=== PATIENT | female | born 1955 | race Caucasian/White ===

== ENCOUNTER 2017-12-26 12:24 | Outpatient (CLI) | payer BC | END 2017-12-26 12:25 | disposition home or self-care (01) | LOC: BICMAMMO 12:24 | PROVIDERS: ATTEND Obstetrics & Gynecology | DX: Z12.31 Encounter for screening mammogram for malignant neoplasm of breast (principal); Z80.3 Family history of malignant neoplasm of breast | CPT/HCPCS: 77063; 77067 ==

== ENCOUNTER 2017-12-31 04:17 | Inpatient (IN) | payer BC ==
[2017-12-31] MEDS ORDERED: Ondansetron PF 4 MG/2 ML Vial ONE ×2 (04:30→06:53)
[2017-12-31 05:15] LABS: Hemoglobin 17.2 g/dL (12.0-16.0); Mean Corpuscular HGB CONC 32.2 g/dL (32.0-36.0); Mean Corpuscular Volume 93.2 fL (78.0-98.0); Mean Platelet Volume 7.7 fL (7.4-10.4); Platelet Count 368 thou/uL (130-400); RBC Distribution Width 11.9 % (11.5-14.5); Red Blood Cell (RBC) Count 5.72 mill/uL (4.20-5.40); White Blood Cell (WBC) Count 19.8 thou/uL (4.8-10.8)
[2017-12-31 05:20] LABS: ALT (SGPT) 26 U/L (8-55); AST (SGOT) 29 U/L (5-34); Albumin 5.4 g/dL (3.4-4.8); Alkaline Phosphatase 92 U/L (40-150); Anion Gap 21 mmol/L (10-20); BUN (Urea Nitrogen) 24 mg/dL (9.8-20.1); Bilirubin, Total 0.6 mg/dL (0.2-1.2); Calc. Creatinine Clearance 0 mL/min (70-130); Calcium 11.9 mg/dL (7.8-10.44); Carbon Dioxide 30 mmol/L (23-31); Chloride 96 mmol/L (98-107); Estimated GFR-MDRD 44; Globulin 3.7 g/dL (2.4-3.5); Glucose 148 mg/dL (80-115); Lipase 10 U/L (8-78); Potassium 4.8 mmol/L (3.5-5.1); Protein, Total 9.1 g/dL (6.0-8.3); Sodium 142 mmol/L (136-145)
[2017-12-31 05:23] LABS: Troponin I Less than 0.010 ng/mL (< 0.028)
[2017-12-31 05:43] LABS: Band 8 % (5-11); Eosinophils 4 % (0-10); Lymphocytes 6 % (21-51); MDiff Complete? YES; Monocytes 6 % (0-10); Neutrophil 76 % (42-75)
[2017-12-31] MEDS ORDERED: Morphine 2 MG/ML SYRINGE SLOW IVP PRN (09:40)
[2017-12-31] MEDS ORDERED: Ondansetron ODT 4 MG TAB SL PRN (09:41)
[2017-12-31] MEDS ORDERED: Ondansetron PF 4 MG/2 ML Vial IVP PRN (09:41)
[2017-12-31] MEDS ORDERED: Acetaminophen 500 MG TAB PO PRN (10:29)
[2017-12-31] MEDS ORDERED: Ondansetron ODT 4 MG TAB PO PRN (10:29)
[2017-12-31] MEDS: Ondansetron PF 4 MG/2 ML Vial IVP PRN (10:40)
--- NOTE | 2017-12-31 11:17 | CT ---
PRELIMINARY REPORT/[facility]/EMERGENCY AFTER HOURS PROCEDURE: EXAM: CT Abdomen and Pelvis With Intravenous Contrast EXAM DATE/TIME: 12/31/2017 5:37 AM CLINICAL HISTORY: 62 years old, female; Signs and symptoms; Nausea and vomiting; Patient HX: F62 presents to ed C/O vom iting, onset earlier today. PT competed in tennis tournament today and felt nausea after, followed by vomiting and chills. Vomit has been mostly clear. PT has HX of bowel obstruction from past surgery, feb 2016. PT also has HX of peripheral neuropathy. PT experienced hyperventhilating ear lier today. Denies: Diarhea, fever, chest pain, SOB, dysuria. TECHNIQUE: Axial computed tomography images of the abdomen and pelvis with intravenous contrast. Coronal reforma tted images were created and reviewed. COMPARISON: No relevant prior studies available. FINDINGS: Lower thorax: No acute findings. ABDOMEN: Liver: There is a 6.4 x 6.0 cm cyst in the left lobe of the liver. There are several smaller addition al liver cysts. Gallbladder and bile ducts: Normal. No calcified stones. No ductal dilation. Pancreas: Normal. No ductal dilation. Spleen: Normal. No splenomegaly. Adrenals: Normal. No mass. Kidneys and ureters: There is a 2.4 cm cyst in the right kidney. The left kidney is unremarkable. Stomach and bowel: The proximal small bowel is dilated measuring up to 4.2 cm in diameter. There is a transition point in mid abdomen (series 2 image 50 and series 601 image 35). Appendix: The appendix is unremarkable. PELVIS: Bladder: Unremarkable as visualized. Reproductive: The uterus is not identified. ABDOMEN and PELVIS: Intraperitoneal space: Unremarkable. No free fluid or free air. No fluid collection. Bones/joints: No fracture. No dislocation. Soft tissues: There is rectus diastasis. Vasculature: Calcifications in the stanton of the aorta and other arteries are consistent with atherosc lerosis. No abdominal aortic aneurysm or dissection is identified. Lymph nodes: Normal. No enlarged lymph nodes. IMPRESSION: 1. Small bowel obstruction. 2. Large amount of stool in the colon. 3. Additional findings as above. Thank you for allowing us to participate in the care of your patient. Dictated and Authenticated by: Gabriel Shabazz MD 12/31/2017 6:34 AM Central Time ([place] & [place]) FINAL REPORT CT ABDOMEN AND PELVIS WITH CONTRAST: Date: 12/31/17 HISTORY: Abdominal pain, nausea, and vomiting. COMPARISON: None. FINDINGS/IMPRESSION: Pleural based nodule in the right lower lobe measuring 7.0 mm. Multiple hepatic cysts. Findings and impression are concordant with the preliminary report by Diandra. Surgical consultation advised. Transition point seen on axial image 50, in the midline lower abdomen. POS: ALVIN
--- NOTE | 2017-12-31 11:19 | HP ---
DATE OF ADMISSION: 12/31/2017 PRIMARY CARE PHYSICIAN: Dr. Ghislaine Avilez at [facility]. CHIEF COMPLAINT: Nausea, vomiting, and abdominal pain. HISTORY OF PRESENT ILLNESS: This is a 62-year-old female who presents to [facility] Emergency Department complaining of approximately less than 24-hour history of abdominal pain with associated nausea and vomiting that has been persistent. The patient states she completed a tennis tournament in [facility] on 12/30/2017 noticing some abdominal discomfort after completion of her m atch. The patient states she had a bowel movement after arriving back home with increasing nausea an d eventual emesis over the course of the evening. The patient states her last oral intake was in the brand manager hours on 12/31/2017. The patient denies any recent trauma injury, but does state a hi story of bowel obstruction manually reduced approximately a year and a half prior to this evaluation without further complications. The patient states she remains very active and denies any recent cerna ge to her medication regimen, travel history or diarrhea. The patient denies any other alleviating f actors. In the emergency room, the patient underwent general evaluation including CT of the abdomen and pelvis showing evidence of small-bowel obstruction with transition point. The patient was given Zofran and intravenous normal saline and transferred to the surgical unit for further evaluation. PAST MEDICAL HISTORY: 1. Peripheral neuropathy. 2. History of partial small bowel obstruction in 2017. 3. Seasonal allergies. PAST SURGICAL HISTORY: 1. Status post bladder suspension. 2. Status post reduction of a partial small-bowel obstruction. 3. Status post hysterectomy. CURRENT MEDICATIONS: 1. Zyrtec 10 mg p.o. daily. 2. Cranberry extract 425 mg p.o. daily. 3. Estrace 1 mg p.o. daily. 4. Estradiol 1 mg p.o. Monday, Monday, and Monday. 5. Folic acid 0.4 mg p.o. daily. 6. Gabapentin 300 mg p.o. b.i.d. and 600 mg p.o. at bedtime. 7. Multivitamin 1 tab p.o. daily. 8. Pamelor 10 mg p.o. p.r.n. 9. Nasacort 2 sprays in each naris daily. ALLERGIES: To SULFA. FAMILY HISTORY: No inheritable diseases per the patient report. SOCIAL HISTORY: The patient is , resides in [facility]. No current tobacco, alcohol o r illicit drug use. Functional of all activities of daily living. REVIEW OF SYSTEMS: The following complete review of systems was negative, unless otherwise mentioned in the HPI or below: Constitutional: Weight loss or gain, ability to conduct usual activities. Skin: Rash, itching. Eyes: Double vision, pain. ENT/Mouth: Nose bleeding, neck stiffness, pain, tenderness. Cardiovascular: Palpitations, dyspnea on exertion, orthopnea. Respiratory: Shortness of breath, wheezing, cough, hemoptysis, fever or night sweats. Gastrointestinal: Poor appetite, abdominal pain, heartburn, nausea, vomiting, constipation, or diarr hea. Genitourinary: Urgency, frequency, dysuria, nocturia. Musculoskeletal: Pain, swelling. Neurologic/Psychiatric: Anxiety, depression. Allergy/Immunologic: Skin rash, bleeding tendency. PHYSICAL EXAMINATION: VITAL SIGNS: On admission, blood pressure 112/84, pulse 88, respiratory rate 18, temperature 98 degr ees Fahrenheit, O2 saturation is 99% on room air. GENERAL APPEARANCE: This is a 62-year-old female, alert and oriented x3, pleasant, convers ant, smiling, in no acute distress. HEENT: Pupils are equal, round, and reactive to light and accommodation. Extraocular muscles are in tact. No scleral icterus, no conjunctival injection. Nares patent. OP is clear. Teeth in good rep air. NECK: Supple, no cervical adenopathy, no thyromegaly, no carotid bruits, no JVD appreciated. Cervic al spine with full active and passive range of motion. No meningeal signs appreciated. CHEST: Lungs are clear to auscultation bilaterally. CARDIOVASCULAR: S1, S2, without noted murmur, rub or gallop. ABDOMEN: Flat, soft, nontender, nondistended. Bowel sounds are positive in all four quadrants. The re is no hepatosplenomegaly, no abdominal bruits, no rebound or guarding appreciated. EXTREMITIES: Warm and dry with fair turgor. No clubbing, cyanosis or asymmetric edema appreciated. Pulses palpable distally at the dorsalis pedis, posterior tibial, and popliteal arteries bilaterally . Capillary refill less than 2 seconds. NEUROLOGIC: Cranial nerves II through XII are grossly intact. No focal or lateralizing signs apprec iated. PERTINENT LABORATORY DATA AND X-RAY FINDINGS: Sodium 142, potassium 4.8, chloride 96, CO2 of 30, BUN 24, creatinine 1.23 with estimated GFR of 44, glucose 148, calcium 11.9. LFTs within normal limits. Lipase 10. CBC showed white blood cell count 19.8, hemoglobin 17, hematocrit 53, platelet count 36 8 with 76% neutrophils. CT of the abdomen and pelvis dated 12/31/2017 showed evidence of a partial s mall-bowel obstruction with transition point. EKG dated 12/31/2017 by my interpretation shows sinus mechanism with heart rates in the 70s. Normal R-wave progression noted in precordial leads. Normal axis. No acute ST-T wave changes appreciated. ASSESSMENT AND PLAN: 1. Partial small-bowel obstruction. The patient will be admitted to the surgical llanes. We will con tinue symptomatic and supportive management. No current need for NG tube placement. Small bowel fol low through planned currently. Continue IV fluids with normal saline and antiemetics as clinically i ndicated. General Surgery consult pending. 2. Nausea and vomiting secondary to #1, improved. We will continue Zofran 4 mg IV q.6 hours p.r.n. Continue intravenous normal saline. 3. Acute kidney injury. Suspect secondarily to volume depletion and #1. 4. Avoid nephrotoxic agents and contrast media. Continue intravenous fluids and repeat creatinine i n the a.m. 5. Hypercalcemia, mild. Suspect secondary to acute kidney injury. Repeat calcium level and continu e IV fluids. 6. Prophylaxis. Sequential compression devices while in bed. Pepcid 20 mg IV q.12 hours. 7. Code status is full. Surrogate medical decision maker is patient's spouse.
[2017-12-31] MEDS: Gabapentin 300 MG CAP PO SCH ×2 (11:57→20:21)
[2017-12-31] MEDS: Sodium Chloride 0.9% 1,000 ML IV SCH ×2 (11:57→22:27)
--- NOTE | 2017-12-31 14:44 | RAD ---
SMALL BOWEL FOLLOW THROUGH: Date: 12/31/17 HISTORY: Obstruction. COMPARISON: CT same date. FINDINGS: There is no significant change in the contrast transit between 1 hour and 2.5 hours. This is at the l evel of the known transition point in the lower abdomen. IMPRESSION: High grade small bowel obstruction. POS: ALVIN
[2017-12-31 14:52] VITALS: BMI 21.7
[2017-12-31] MEDS ORDERED: Ondansetron PF 4 MG/2 ML Vial IVP SCH (15:00)
[2017-12-31] MEDS ORDERED: Iopamidol-M 200 41% 10 ML VIAL FS ONE (16:52)
[2017-12-31] MEDS ORDERED: Promethazine HCl 12.5 MG in Sodium Chloride 0.9% 50 ML IVPB SCH (17:15)
--- NOTE | 2017-12-31 18:41 | RAD ---
ABDOMEN ONE VIEW: History: Follow up possible small bowel obstruction. Comparison: Small bowel study, 12-31-17 FINDINGS: This KUB is approximately 7 hours following the start of the small bowel study. Contrast media is in persistently dilated small bowel, mostly jejunal loops. It does not appear to have progressed into th e ileum and certainly not into the colon at this time. This certainly is concerning for potential hig h grade obstruction or possibly a very atonic bowel. IMPRESSION: Dilute oral contrast within dilated proximal small bowel, but no evidence of contrast extension into the ileum or more distal small bowel or colon, even after approximately 7 hours from the time of the start of the prior small bowel study. POS: BJORN
--- NOTE | 2017-12-31 19:22 | CON-2 ---
DATE OF CONSULTATION: 12/31/2017 REQUESTING PHYSICIAN: Dr. Sosa. HISTORY OF PRESENT ILLNESS: Leidy Torres is a 62-year-old female who presented to [facility] cy Room overnight with a chief complaint of abdominal pain, nausea, and vomiting. Per patient, she h ad recently completed a tennis tournament and had sudden onset of abdominal cramping and pain associa jadiel with nausea and vomiting. The patient was seen and evaluated in the emergency room and admitted to the hospital. Surgical team was consulted after CT scan showed dilated loops of small bowel with question of possible transition point; however, there was no oral contrast given. Upon our evaluatio n, the patient states her abdominal pain has improved, she is to 2/10. She is currently undergoing a small bowel follow through and she did have some vomiting after drinking the contrast for this. She reports that she continues to have a pass gas and her last bowel movement was on the day prior to ad mission. ALLERGIES: SULFA. HOME MEDICATIONS: Zyrtec 10 mg p.o. daily; cranberry supplementation; Estrace 1 mg daily; estradiol 1 mg Monday, Monday, Monday; folic acid 0.4 mg; gabapentin 300 mg b.i.d. and 600 mg at bedtime; mu ltivitamin; Pamelor 10 mg p.r.n.; Nasacort 2 sprays daily. PAST MEDICAL HISTORY: Significant for peripheral neuropathy, seasonal allergies and history of a par tial small bowel obstruction in 2017. PAST SURGICAL HISTORY: Significant for a laparoscopic hysterectomy, robotic bladder suspension and e xploratory laparotomy for adhesions, adhesions causing bowel obstruction. Additionally, she has had 2 arthroscopic left knee surgeries. 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 She denies alcohol, tobacco or illicit drug use. FAMILY HISTORY: Patient denies any family history of any chronic medical illnesses. REVIEW OF SYSTEMS: Rest of a 10-point review of systems was performed and negative except as indicat ed in the HPI. PHYSICAL EXAMINATION: VITAL SIGNS: On evaluation, blood pressure 112/77, pulse 80, respirations 16, O2 sat 96% on room air , temperature 97.8. GENERAL: Well-developed female in no acute distress, resting in bed. HEAD: Normocephalic, atraumatic. EYES: Pupils were PERRL. Extraocular movements are intact. NECK: Supple. Trachea is midline. PULMONARY: Normal work of breathing, symmetric rise. LUNGS: Clear to auscultation bilaterally. CARDIOVASCULAR: Regular rate and rhythm, no obvious murmurs, rubs or gallops. GASTROINTESTINAL: Flat, midline surgical scar is noted. Bowel sounds are positive, nontender, nondi stended. No evidence of guarding, rigidity or rebound tenderness. MUSCULOSKELETAL: Moves all extremities x4. NEUROLOGIC: No focal deficit is noted. LABORATORY DATA: WBC 19.8, hemoglobin 17.2, hematocrit 53.3, platelet count 368. Sodium 142, potass ium 4.8, chloride 96, carbon dioxide 30, BUN 24, creatinine 1.23, glucose 148, calcium 11.9. AST and ALT within normal limits. RADIOGRAPHIC FINDINGS: CT of the abdomen and pelvis was read as multiple liver cysts with the larges t measuring 6.4 x 6.0 cm in the left lobe, right kidney cyst, dilated proximal small bowel with evide nce of a possible transition point in the mid abdomen, large amount of stool in the colon, pleural no dule in the right lower lobe measuring 7.0 mm. ASSESSMENT: 1. Abdominal pain associated with nausea and vomiting. 2. History of multiple abdominal surgeries. 3. Acute kidney injury. 4. Hypercalcemia. 5. Leukocytosis. 6. Possible small-bowel obstruction. PLAN: Follow up results of small bowel follow through. The NG tube had not been placed as patient's nausea and vomiting had resolved prior to the small bowel follow through and it being initiated. Fu rther plans to be delineated once the results of the study have been obtained. Plan of care was disc ussed with the patient at bedside and all questions were answered at the time of this dictation. The patient was seen and evaluated with Dr. Hutchinson.
[2017-12-31] MEDS: Famotidine/PF 20 mg/2ml Vial SLOW IVP SCH (20:17)
--- NOTE | 2017-12-31 22:10 | RAD ---
ABDOMEN ONE VIEW: History: NG tube placement. Comparison: 12-31-17 FINDINGS: An NG tube has been placed extending into the stomach. There is some residual dilute contrast media w ithin the stomach and minimally dilated jejunum and proximal small bowel. IMPRESSION: NG tube in satisfactory location within the stomach. POS: BJORN
[2017-12-31] MEDS ORDERED: diphenhydrAMINE 50 MG/ML VIAL IVP SCH (22:15)
[2018-01-01] MEDS ORDERED: Morphine 2 MG/ML SYRINGE SLOW IVP SCH (04:30)
[2018-01-01 05:45] LABS: Hemoglobin 14.1 g/dL (12.0-16.0); Lymphocytes 19 % (21-51); MDiff Complete? YES; Mean Corpuscular HGB CONC 31.4 g/dL (32.0-36.0); Mean Corpuscular Hemoglobin 29.7 pg (27.0-31.0); Mean Corpuscular Volume 94.5 fL (78.0-98.0); Mean Platelet Volume 7.7 fL (7.4-10.4); Monocytes 11 % (0-10); Neutrophil 70 % (42-75); Platelet Count 314 thou/uL (130-400); RBC Distribution Width 11.9 % (11.5-14.5); Red Blood Cell (RBC) Count 4.75 mill/uL (4.20-5.40); White Blood Cell (WBC) Count 11.6 thou/uL (4.8-10.8)
[2018-01-01 06:29] LABS: Anion Gap 15 mmol/L (10-20); BUN (Urea Nitrogen) 35 mg/dL (9.8-20.1); Calc. Creatinine Clearance 56 mL/min (70-130); Calcium 9.3 mg/dL (7.8-10.44); Carbon Dioxide 31 mmol/L (23-31); Chloride 104 mmol/L (98-107); Estimated GFR-MDRD 51; Glucose 104 mg/dL (80-115); Sodium 146 mmol/L (136-145)
[2018-01-01] MEDS: Famotidine/PF 20 mg/2ml Vial SLOW IVP SCH (08:40)
[2018-01-01] MEDS: Sodium Chloride 0.9% 1,000 ML IV SCH ×2 (08:40→20:01)
[2018-01-01] MEDS ORDERED: Acetaminophen 1,000 MG in Premix Bag 1 BAG IVPB PRN (08:43)
[2018-01-01] MEDS: Estradiol 1 MG TAB PO SCH (08:49)
[2018-01-01] MEDS: Loratadine 10 MG TAB PO SCH (08:50)
[2018-01-01] MEDS: Folic Acid 1 MG TAB PO SCH (08:50)
[2018-01-01] MEDS ORDERED: Estradiol 1 MG TAB PO SCH (09:00)
[2018-01-01] MEDS: Ondansetron PF 4 MG/2 ML Vial IVP PRN ×2 (10:10→11:50)
[2018-01-01] MEDS ORDERED: Ondansetron PF 4 MG/2 ML Vial SLOW IVP PRN ×2 (11:51→12:39)
[2018-01-01] MEDS ORDERED: Ondansetron ODT 4 MG TAB PO PRN (11:51)
[2018-01-01] MEDS: Gabapentin 300 MG CAP PO SCH ×2 (11:52→20:01)
[2018-01-01] MEDS ORDERED: MD-Gastroview 120 ML BOT ONE (12:38)
[2018-01-01] MEDS ORDERED: Ondansetron ODT 8 MG TAB PO PRN (12:39)
--- NOTE | 2018-01-01 13:07 | RAD ---
SMALL BOWEL SERIES: Date: 01/01/18 HISTORY: 62-year-old female with history of small bowel obstruction. COMPARISON: 12/31/17. FINDINGS: Gastrografin was introduced through a NG tube. There are dilated jejunal and proximal small bowel loo ps with a transition to nondilated small bowel in the mid and distal small bowel. Contrast media prog resses throughout the entire small bowel and into the right colon by 30 minutes. IMPRESSION: Evidence for partial small bowel obstruction with dilated duodenum and proximal jejunum, with contras t media progressing into nondilated mid and distal small bowel and colon by 30 minutes. POS: BJORN
--- NOTE | 2018-01-01 13:15 | PRG ---
DATE OF SERVICE: 01/01/2018 Ms. Torres is doing well today. She had 3.1 liters out her NG tube overnight. On admission, she had an oral small bowel follow through precipitating abundant nausea and vomiting a nd contrast did not progress to the colon and NG tube placed after that resulting in 3.1 liters decom pression. This morning she states she feels much better. She has passed flatus, although not had a bowel movement. Her abdomen is not distended. PHYSICAL EXAMINATION: LUNGS: Clear to auscultation. CARDIAC: Regular rate and rhythm without murmur or gallop. ABDOMEN: Soft, nontympanitic, nondistended, nontender abdomen. VITAL SIGNS: Temperature 97.8 degrees, 93, 123/80. LABORATORY: White count 11, hemoglobin 14. Basic metabolic profile is normal. ASSESSMENT AND PLAN: High NG tube output, but feeling better clinically. We will repeat a small bow el follow through Gastrografin per NG tube. After giving her options for treatment she has chosen th is route. By the time of this dictation, her small bowel follow through after 30 minutes has tariq ed into the colon. NG tube will remove and her diet advanced and hopefully she can be discharged salena e later today or tomorrow.
--- NOTE | 2018-01-01 16:19 | PDOC.PN ---
- Subjective Encounter Start Date: 01/01/18 Encounter Start Time: 16:20 Subjective: f/u for partial SBO tx with NGT. SBFT showing contrast in the colon after -: 30min. Feels better overall. - Objective Resuscitation Status: Resuscitation Status FULL:Full Resuscitation Vital Signs & Weight: Vital Signs (12 hours) Temp Pulse Resp BP Pulse Ox 01/01/18 16:04 97.8 F 72 18 126/79 92 L 01/01/18 08:40 95 01/01/18 08:00 97.8 F 93 14 123/80 95 01/01/18 04:41 99.2 F 78 19 112/75 96 Weight Weight 147 lb I&O: 12/31/17 01/01/18 01/02/18 06:59 06:59 06:59 Intake Total 2100 Output Total 3725 Balance -1625 Result Diagrams: 01/01/18 04:56 01/01/18 04:56 Additional Labs: Laboratory Tests 12/31/17 12/31/17 Unknown Unknown WBC 19.8 H Hgb 17.2 H Neutrophils % (Manual) 76 H BUN 24 H Creatinine 1.23 H Calcium 11.9 H Radiology Reviewed by me: Yes (SBFT - contrast in colon after 30min) Phys Exam - Physical Examination Constitutional: NAD HEENT: PERRLA, sclera anicteric, oral pharynx no lesions Neck: no nodes, no JVD, supple, full ROM Respiratory: no wheezing, no rales, no rhonchi, clear to auscultation bilateral S1, S2 Cardiovascular: RRR, no significant murmur, no rub, gallop Gastrointestinal: soft, non-tender, no distention, positive bowel sounds Musculoskeletal: no edema, pulses present Neurological: normal sensation, moves all 4 limbs Psychiatric: normal affect, A&O x 3 Skin: no rash, normal turgor, cap refill <2 seconds Dx/Plan (1) SBO (small bowel obstruction) Code(s): K56.609 - UNSP INTESTNL OBST, UNSP TO PARTIAL VERSUS COMPLETE OBST Status: Acute Comment: Appears to be resolving, NGT d/c'd, advancing diet, monitor clinically (2) Nausea & vomiting Code(s): R11.2 - NAUSEA WITH VOMITING, UNSPECIFIED Status: Acute Comment: Secondary to #1, resolving (3) DAYAN (acute kidney injury) Code(s): N17.9 - ACUTE KIDNEY FAILURE, UNSPECIFIED Status: Acute Comment: Secondary to dehydration, resolving with IVF's (4) Hypercalcemia Code(s): E83.52 - HYPERCALCEMIA Status: Acute Comment: Improved, continue IVF's and encourage increased free-H2O intake - Plan plan discussed w/ family, out of bed/ambulate Stable overall -: Saline lock IVF's -: Advance diet as tolerated -: OOB/ambulate -: Likely home in am * .
[2018-01-02] MEDS: Folic Acid 1 MG TAB PO SCH (08:48)
[2018-01-02] MEDS: Loratadine 10 MG TAB PO SCH (08:48)
[2018-01-02] MEDS: Estradiol 1 MG TAB PO SCH (08:48)
[2018-01-02] MEDS: Gabapentin 300 MG CAP PO SCH (11:23)
[2018-01-02 11:32] VITALS: BP 100/65; TEMP 98.7
--- NOTE | 2018-01-02 11:35 | PRG ---
DATE OF SERVICE: 01/02/2018 SUBJECTIVE: Ms. Torres is a 62-year-old woman who was admitted with acute small-bowel obstruction. To day, she is awake and alert. She was reporting passing flatus, having bowel movement. She is tolera ting a regular diet. OBJECTIVE: VITAL SIGNS: This morning included blood pressure 99/62, pulse 68, respiration rate is 18, temperatu re is 97.6 degrees Fahrenheit, oxygen saturation is 97% on room air. ABDOMEN: Soft, nontender, nondistended. IMPRESSION: Resolved acute small-bowel obstruction. There is no acute surgical indication for this patient at this time. She is certainly stable for dis charge at the discretion of the primary service. General Surgery will sign off at this time and be a vailable to reevaluate the patient on demand.
== END 2018-01-02 12:09 | disposition home or self-care (01) | DRG 389 ==
LOC: ERS 04:17 → SURG A 09:23
PROVIDERS: ADMIT Internal Medicine; ATTEND Internal Medicine
DX: K56.600 Partial intestinal obstruction, unspecified as to cause (principal); N17.9 Acute kidney failure, unspecified; E83.52 Hypercalcemia; G62.9 Polyneuropathy, unspecified; D72.829 Elevated white blood cell count, unspecified
CPT/HCPCS: 36415; 74018; 74177; 74250; 80048; 80053; 83690; 84484; 85007; 85025; 85027; 93005; 96361; 96374; 96376; J0131; J1200; J2270; J2405; J2550; J7050; S0028

== ENCOUNTER 2021-06-29 15:33 | Outpatient (CLI) | payer MEDICARE | END 2021-06-29 15:34 | disposition home or self-care (01) | LOC: BICMAMMO 15:33 | PROVIDERS: ATTEND Family Medicine | DX: Z12.31 Encounter for screening mammogram for malignant neoplasm of breast (principal); Z80.3 Family history of malignant neoplasm of breast | CPT/HCPCS: 77063; 77067 ==

== ENCOUNTER 2022-04-26 13:43 | Outpatient (CLI) | payer MEDICARE | END 2022-04-26 13:44 | disposition home or self-care (01) | LOC: BICMAMMO 13:43 | PROVIDERS: ATTEND Family Medicine Sports Medicine | DX: Z13.820 Encounter for screening for osteoporosis (principal); Z78.0 Asymptomatic menopausal state; M85.88 Other specified disorders of bone density and structure, other site | CPT/HCPCS: 77080 ==

== ENCOUNTER 2023-03-24 09:35 | Inpatient (IN) | payer MEDICARE ==
[2023-03-24] MEDS: Sodium Chloride 0.9% 1,000 ML IV SCH ×2 (13:43→22:18)
[2023-03-24 14:25] VITALS: BMI 22.4
[2023-03-24 14:30] LABS: #Basophils 0.1 thou/uL (0.0-0.2); #Eosinphils 0.2 thou/uL (0.0-0.7); #Monocytes 0.8 thou/uL (0.11-0.59); #Neutrophils 12.6 thou/uL (1.40-6.50); %Basophils 0.3 % (0.0-1.0); %Eosinophils 1.1 % (0.0-10.0); %Lymphocytes 8.3 % (21.0-51.0); %Monocytes 5.2 % (0.0-10.0); %Neutrophils 84.6 % (42.0-75.0); Hematocrit 42.1 % (36.0-47.0); Hemoglobin 13.9 g/dL (12.0-16.0); Mean Corpuscular Hemoglobin 30.3 pg (27.0-31.0); Mean Corpuscular Volume 91.9 fl (78.0-98.0); Mean Platelet Volume 9.9 fL (7.4-10.4); Platelet Count 250 10x3/uL (130-400); RBC Distribution Width 12.6 % (11.5-14.5); Red Blood Cell (RBC) Count 4.58 mill/uL (4.20-5.40); White Blood Cell (WBC) Count 14.9 10x3/uL (4.8-10.8)
[2023-03-24 14:48] LABS: Lactic Acid 0.8 mmol/L (0.5-2.2)
[2023-03-24 14:52] LABS: Anion Gap 13 mmol/L (10-20); BUN (Urea Nitrogen) 16 mg/dL (9.8-20.1); Calc. Creatinine Clearance 69 mL/min (70-130); Calcium 8.8 mg/dL (7.8-10.44); Carbon Dioxide 24 mmol/L (23-31); Chloride 107 mmol/L (98-107); Estimated GFR 81; Glucose 90 mg/dL (80-115); Potassium 3.8 mmol/L (3.5-5.1); Sodium 140 mmol/L (136-145)
[2023-03-24 15:04] LABS: PTT 33.5 sec (22.9-36.1)
[2023-03-24 15:05] LABS: Prothrombin Time 13.6 sec (12.0-14.7)
[2023-03-25 05:25] LABS: #Basophils 0.1 thou/uL (0.0-0.2); #Eosinphils 0.5 thou/uL (0.0-0.7); #Monocytes 0.8 thou/uL (0.11-0.59); #Neutrophils 4.4 thou/uL (1.40-6.50); %Basophils 0.8 % (0.0-1.0); %Eosinophils 6.1 % (0.0-10.0); %Lymphocytes 26.2 % (21.0-51.0); %Monocytes 10.7 % (0.0-10.0); %Neutrophils 55.8 % (42.0-75.0); Hematocrit 39.6 % (36.0-47.0); Hemoglobin 12.9 g/dL (12.0-16.0); Mean Corpuscular HGB CONC 32.6 g/dL (32.0-36.0); Mean Corpuscular Hemoglobin 30.1 pg (27.0-31.0); Mean Corpuscular Volume 92.3 fl (78.0-98.0); Mean Platelet Volume 10.5 fL (7.4-10.4); Platelet Count 239 10x3/uL (130-400); Red Blood Cell (RBC) Count 4.29 mill/uL (4.20-5.40); White Blood Cell (WBC) Count 7.9 10x3/uL (4.8-10.8)
[2023-03-25 05:37] LABS: Anion Gap 12 mmol/L (10-20); BUN (Urea Nitrogen) 14 mg/dL (9.8-20.1); Calc. Creatinine Clearance 71 mL/min (70-130); Calcium 8.6 mg/dL (7.8-10.44); Carbon Dioxide 23 mmol/L (23-31); Chloride 112 mmol/L (98-107); Estimated GFR 83; Glucose 75 mg/dL (80-115); Potassium 3.6 mmol/L (3.5-5.1); Sodium 143 mmol/L (136-145)
[2023-03-25] MEDS: Sodium Chloride 0.9% 1,000 ML IV SCH (06:45)
[2023-03-25] MEDS ORDERED: Ibuprofen 600 MG TAB PO SCH (09:06)
[2023-03-25] MEDS ORDERED: Gabapentin 300 MG CAP PO SCH ×3 (09:15→11:00)
[2023-03-25] MEDS ORDERED: Ketorolac Tromethamine 30 MG (1 mL) VIAL IVP SCH (09:15)
[2023-03-25 11:35] VITALS: BP 118/70; TEMP 98.7
[2023-03-25] MEDS ORDERED: Acetaminophen 500 MG TAB PO SCH (12:00)
== END 2023-03-25 13:55 | disposition home or self-care (01) | DRG 392 ==
LOC: SJJU 09:35
PROVIDERS: ADMIT Internal Medicine; ATTEND Internal Medicine
DX: K59.00 Constipation, unspecified (principal); K56.600 Partial intestinal obstruction, unspecified as to cause; G62.9 Polyneuropathy, unspecified; Z88.2 Allergy status to sulfonamides; Z79.899 Other long term (current) drug therapy; Z90.710 Acquired absence of both cervix and uterus; Z98.890 Other specified postprocedural states; K76.89 Other specified diseases of liver; D72.829 Elevated white blood cell count, unspecified; N18.2 Chronic kidney disease, stage 2 (mild); J30.2 Other seasonal allergic rhinitis
CPT/HCPCS: 36415; 74022; 80048; 83605; 83735; 85025; 85610; 85730; 86850; 86900; 86901; J1885; J7050

== ENCOUNTER 2023-12-26 08:02 | Outpatient (CLI) | payer MEDICARE ==
[2023-12-26] MEDS ORDERED: Iopamidol 370 76% 100 ML VIAL ONE (10:06)
== END 2023-12-26 08:03 | disposition home or self-care (01) ==
LOC: BICCT 08:02
PROVIDERS: ATTEND Physician Assistant Medical
DX: K59.00 Constipation, unspecified (principal); R19.09 Other intra-abdominal and pelvic swelling, mass and lump; K76.89 Other specified diseases of liver; K83.8 Other specified diseases of biliary tract; N28.1 Cyst of kidney, acquired; K57.30 Diverticulosis of large intestine without perforation or abscess without bleeding; I77.89 Other specified disorders of arteries and arterioles
CPT/HCPCS: 36415; 74177; 82565; Q9967